=== PATIENT | male | born 1955 | race Caucasian/White ===

== ENCOUNTER 2016-12-23 11:24 | Inpatient (IN) | payer BC ==
--- NOTE | ~2016-12-23 | HP ---
History And Physical [id number] [place]. [address] NAME: LUZ ELENA MICHAEL : 57 STATUS : ADM IN [facility]#: [id number] AGE: 61 ADM/REG DATE : 12/23/16 MR#: [id number] REPORT SERV DATE: 12/23/16 DICTATED BY: IRENE TURNER JR. DATE: 12/23/16 REPORT STATUS : Draft TRANSCRIBED BY: MODHannah DATE: 12/23/16 DATE OF ADMISSION: 12/23/2016 CHIEF COMPLAINT: Abdominal pain. HISTORY OF PRESENT ILLNESS: This is a 61-year-old male who presented to the emergency department with approximately 2-day history of abdominal distention, nausea, vomiting, and diarrhea. He had previous similar symptoms but without the diarrhea approximately 2 years ago at which time, he came to admit to the hospital and had a small bowel obstruction that resolved with conservative measurement and had additional evaluation which showed no other abnormality. He has not had previous surgery. He has had no other history of significant GI problems. Upon evaluation here in the emergency room, he did have some distention and he had a CT scan which shows evidence of small bowel obstruction though there is gas within the colon and fairly significant distention of the transverse colon. There was no other evident abnormality. It was also noted he had a history of a cutaneous abnormality thought to be possibly lymphoma though without definitive diagnosis. PAST MEDICAL HISTORY: He has a history of hypothyroidism, GI reflux, and he has had a previous knee surgery. MEDICATIONS: Aspirin, Lipitor, Synthroid, and Prilosec. ALLERGIES: HE HAS NO KNOWN ALLERGIES. FAMILY HISTORY: Noncontributory. He is . He does not smoke. Occasional alcohol. REVIEW OF SYSTEMS: GENERAL: No fever, chills, or weakness. HEENT: Negative. SKIN: Negative. RESPIRATORY: Negative. CV: Negative. GI: As above. : Negative. MUSCULOSKELETAL: Negative. ENDOCRINE: Negative. HEMATOLOGIC: Negative. IMMUNOLOGIC: Negative. PSYCHIATRIC: Negative. PHYSICAL EXAMINATION: GENERAL: Exam shows a healthy-appearing male, who is in no acute distress. VITAL SIGNS: The vital signs showed that his temperature is 91, heart rate is 105, respirations 16, and blood pressure 136/99. HEENT: The head and neck exam shows the pupils are equal and reactive. No icteric changes. Mucous membranes are slightly dry. History And Physical [address] [place]. [address] NAME: LUZ ELENA MICHAEL : 57 STATUS : ADM IN [facility]#: [id number] AGE: 61 ADM/REG DATE : 12/23/16 MR#: [id number] REPORT SERV DATE: 12/23/16 DICTATED BY: IRENE TURNER JR. DATE: 12/23/16 REPORT STATUS : Draft TRANSCRIBED BY: BRITTANY DATE: 12/23/16 NECK: Supple. There is no mass or thyromegaly. LUNGS: Clear bilaterally. CARDIOVASCULAR: Normal S1 and S2 without murmur. ABDOMEN: Soft. It is slightly distended. Very mildly tender. Hyperactive bowel sounds are present. EXTREMITIES: Show no clubbing, cyanosis, or edema. NEUROLOGIC: Alert and oriented. No focal findings. Appropriate affect. LABORATORY STUDIES: Show a white count of 7500. Bilirubin is 1.9 and potassium is 3.4. The review of the CT does demonstrate the bowel obstruction and comparison with previous studies indicate a slightly different bowel appearance. IMPRESSION: Small-bowel obstruction of uncertain etiology. PLAN: We will proceed with admission, place an NG tube and IV fluids and monitor. This was all discussed with the patient and his . They understand and agree with the plan. BHANU/BRITTANY Irene Turner Jr., M.D. / [id number] CC: Dennis Richard Jr.
[~2016-12-23 11:24] MED LIST: ASAB PO; LIPITOR20 PO; PRILOSEC OTC20 MG PO; SYN.05 PO
[2016-12-23 12:07] LABS: BASOPHILS 0.3 %; BASOPHILS ABSOLUTE 0.02 10/3/uL (0.0-0.16); EOSINOPHILS 1.9 %; EOSINOPHILS ABSOLUTE 0.14 10/3/uL (0.0-0.53); ER CBC TAT 0 Hrs 09 Mins; HEMATOCRIT 50.3 % (40.0-51.0); HEMOGLOBIN 17.8 g/dL (13.6-17.8); IMMATURE GRANULOCYTES 0.1 %; IMMATURE GRANULOCYTES ABSOLUTE 0.01 10/3/uL (0.0-0.11); LYMPHOCYTES 18.6 %; LYMPHOCYTES ABSOLUTE 1.39 10/3/uL (0.67-4.30); MEAN CORPUS HGB CONC 35.4 g/dL (32.0-36.0); MEAN CORPUSCULAR HEMOGLOB 32.4 pg (26.0-34.0); MEAN CORPUSCULAR VOLUME 91.5 fL (80-100); MEAN PLATELET VOLUME 11.3 fL (9.2-13.0); MONOCYTES 13.1 %; MONOCYTES ABSOLUTE 0.98 10/3/uL (0.21-1.20); NEUTROPHILS ABSOLUTE 4.94 10/3/uL (2.02-8.40); PLATELET COUNT 167 10/3/uL (150-400); RBC DISTRIBUTION WIDTH 12.2 % (12.0-16.0); WHITE BLOOD CELLS 7.5 10/3/uL (4.5-10.5)
[2016-12-23 12:11] LABS: MANUAL DIFF NO %
[2016-12-23 12:26] LABS: ALBUMIN 4.4 G/DL (3.5-5.0); ALKALINE PHOSPHATASE 76 U/L (45-117); BUN (BLOOD UREA NITROGEN) 10 MG/DL (6-23); CALCIUM, SERUM 9.1 MG/DL (8.5-10.4); CHLORIDE, SERUM 102 MMOL/L (96-112); CO2 (CARBON DIOXIDE) 26 MMOL/L (24-34); GFR AFRICAN AMERICAN 107 ML/MIN (>=60); GFR NON AFRICAN AMERICAN 93 ML/MIN (>=60); SGOT(AST) 44 U/L (5-40); SGPT(ALT) 76 U/L (5-65); SODIUM, SERUM 140 MMOL/L (135-148); TOTAL PROTEIN 8.1 G/DL (6.0-8.5)
[2016-12-23 12:27] LABS: A/G RATIO 1.2 (0.7-1.9); GLOBULIN 3.7 G/DL (2.5-4.1); GLUCOSE, SERUM 125 MG/DL (60-99); POTASSIUM, SERUM 3.4 MMOL/L (3.5-5.3); TOTAL BILIRUBIN 1.9 MG/DL (0-1.2)
[2016-12-23] MEDS ORDERED: ASAB PO (14:16)
[2016-12-23] MEDS ORDERED: LIPITOR40 PO (14:16)
[2016-12-23] MEDS ORDERED: SYN.05 PO (14:17)
[2016-12-23] MEDS ORDERED: PRILOSEC OTC20 MG PO (14:17)
[2016-12-24 06:59] LABS: BASOPHILS 0.2 %; BASOPHILS ABSOLUTE 0.01 10/3/uL (0.0-0.16); EOSINOPHILS ABSOLUTE 0.13 10/3/uL (0.0-0.53); HEMOGLOBIN 14.5 g/dL (13.6-17.8); LYMPHOCYTES 30.6 %; LYMPHOCYTES ABSOLUTE 1.94 10/3/uL (0.67-4.30); MEAN CORPUS HGB CONC 35.3 g/dL (32.0-36.0); MEAN CORPUSCULAR HEMOGLOB 32.2 pg (26.0-34.0); MEAN CORPUSCULAR VOLUME 91.1 fL (80-100); MONOCYTES 16.2 %; MONOCYTES ABSOLUTE 1.03 10/3/uL (0.21-1.20); NEUTROPHILS ABSOLUTE 3.24 10/3/uL (2.02-8.40); PLATELET COUNT 151 10/3/uL (150-400); RBC DISTRIBUTION WIDTH 12.8 % (12.0-16.0); RED CELL COUNT 4.51 10/6/uL (4.7-6.1); WHITE BLOOD CELLS 6.4 10/3/uL (4.5-10.5)
[2016-12-24 07:01] LABS: HEMATOCRIT 41.1 % (40.0-51.0); MANUAL DIFF NO %
[2016-12-24 07:16] LABS: A/G RATIO 1.1 (0.7-1.9); ALBUMIN 3.2 G/DL (3.5-5.0); ALKALINE PHOSPHATASE 53 U/L (45-117); BUN (BLOOD UREA NITROGEN) 12 MG/DL (6-23); CALCIUM, SERUM 7.8 MG/DL (8.5-10.4); CHLORIDE, SERUM 106 MMOL/L (96-112); CO2 (CARBON DIOXIDE) 29 MMOL/L (24-34); CREATININE 0.92 MG/DL (0.70-1.30); GFR AFRICAN AMERICAN 104 ML/MIN (>=60); GFR NON AFRICAN AMERICAN 90 ML/MIN (>=60); GLOBULIN 2.9 G/DL (2.5-4.1); GLUCOSE, SERUM 114 MG/DL (60-99); POTASSIUM, SERUM 3.6 MMOL/L (3.5-5.3); SGOT(AST) 26 U/L (5-40); SGPT(ALT) 55 U/L (5-65); SODIUM, SERUM 142 MMOL/L (135-148); TOTAL BILIRUBIN 1.1 MG/DL (0-1.2); TOTAL PROTEIN 6.1 G/DL (6.0-8.5)
[2016-12-25 05:30] LABS: BASOPHILS 0.4 %; BASOPHILS ABSOLUTE 0.02 10/3/uL (0.0-0.16); EOSINOPHILS 2.4 %; EOSINOPHILS ABSOLUTE 0.13 10/3/uL (0.0-0.53); HEMOGLOBIN 13.9 g/dL (13.6-17.8); IMMATURE GRANULOCYTES 0.2 %; IMMATURE GRANULOCYTES ABSOLUTE 0.01 10/3/uL (0.0-0.11); LYMPHOCYTES 43.3 %; LYMPHOCYTES ABSOLUTE 2.31 10/3/uL (0.67-4.30); MEAN CORPUS HGB CONC 33.9 g/dL (32.0-36.0); MEAN CORPUSCULAR HEMOGLOB 31.8 pg (26.0-34.0); MEAN CORPUSCULAR VOLUME 93.8 fL (80-100); MEAN PLATELET VOLUME 10.9 fL (9.2-13.0); MONOCYTES 15.2 %; MONOCYTES ABSOLUTE 0.81 10/3/uL (0.21-1.20); NEUTROPHILS 38.5 %; NEUTROPHILS ABSOLUTE 2.05 10/3/uL (2.02-8.40); PLATELET COUNT 149 10/3/uL (150-400); RBC DISTRIBUTION WIDTH 12.2 % (12.0-16.0); RED CELL COUNT 4.37 10/6/uL (4.7-6.1); WHITE BLOOD CELLS 5.3 10/3/uL (4.5-10.5)
[2016-12-25 05:32] LABS: MANUAL DIFF NO %
[2016-12-25 05:51] LABS: CALCIUM, SERUM 8.1 MG/DL (8.5-10.4); CHLORIDE, SERUM 111 MMOL/L (96-112); CO2 (CARBON DIOXIDE) 27 MMOL/L (24-34); CREATININE 0.83 MG/DL (0.70-1.30); GFR AFRICAN AMERICAN 111 ML/MIN (>=60); GFR NON AFRICAN AMERICAN 96 ML/MIN (>=60); GLUCOSE, SERUM 109 MG/DL (60-99); POTASSIUM, SERUM 3.9 MMOL/L (3.5-5.3); SODIUM, SERUM 144 MMOL/L (135-148)
[2016-12-25 05:53] LABS: BUN (BLOOD UREA NITROGEN) 6 MG/DL (6-23)
== END 2016-12-25 11:19 | disposition home or self-care (01) | DRG 390 ==
LOC: ER 11:24 → 4SO 16:00
PROVIDERS: Emergency Medicine; Specialist
DX: K56.69 Other intestinal obstruction (principal); E03.9 Hypothyroidism, unspecified; K21.9 Gastro-esophageal reflux disease without esophagitis; Z79.82 Long term (current) use of aspirin
CPT/HCPCS: 74000; 74020; 74176; 80048; 80053; 81001; 83690; 85025; 93005; 96374; 96375; 99285; A9270-GY; C9113; J1170; J1980; J2405